=== PATIENT | female | born 1935 | race Caucasian/White ===

== ENCOUNTER 2018-11-25 16:47 | Inpatient (IN) | payer MEDICARE, OTHER ==
[2018-11-25] MEDS ORDERED: LR(*) 1000 ML BAG 1,000 ML ONE (17:03)
[2018-11-25] MEDS ORDERED: ONDANSETRON 4 MG/2 ML VIAL ONE (17:06)
[2018-11-25] MEDS ORDERED: ONDANSETRON 4 MG/2 ML VIAL IVP ONE ×3 (17:10→20:55)
--- NOTE | 2018-11-25 17:21 | ER Report ---
History and Physical Time Seen By MD: 17:00 (ESTEFANIA CASEY DO) HPI/ROS CHIEF COMPLAINT: vomitng and diarrhea HISTORY OF PRESENT ILLNESS: Pt states that she has had diarrhea for 3 years. It was determined that her symptoms may be related to her gallbladder. Pt was admitted to [facility] on october 31. Pts surgeon in [place], [place] took her to the OR November 02 and found her GB to be adhered to her pancreas, liver and small bowel so they decided to close up without removing her gb. They did place a drain in her gb which is to stay for 8 weeks. Her surgeon in [place] was going to refer her to [facility] after the 8 weeks for further treatment. PT states she was septic in that addmission and was in the hospital November 02-. Pt is not on abx. Pt statse that the last 4 days she has had vomiting and diarrhea. Pt has not been able to hold much down and is not urinating as frequently. Pt states this am she was able to keep a few mouth fulls of oatmeal but that was unusual. PT on Ed arrival is actively vomiting clear liquid. Pts does not believe she has a fever. REVIEW OF SYSTEMS: Constitutional: No fever, no chills. Eyes: No discharge. ENT: No sore throat. Cardiovascular: No chest pain, no palpitations. Respiratory: No cough, no shortness of breath. Gastrointestinal: + abdominal pain, + vomiting, + nausea, + diarrhea Genitourinary: No hematuria. Musculoskeletal: No back pain. Skin: No rashes. Neurological: No headache. (ESTEFANIA CASEY DO) Allergies: Coded Allergies: No Known Drug Allergies (Unverified , 11/25/18) Home Meds Reported Medications Timolol Maleate (Timolol Maleate) 0.5 % Drop.daily, QDAY 11/25/18 Latanoprost (LATANOPROST) 2.5 Ml Drops, 2.5 ML OP QDAY 11/25/18 Brinzolamide (AZOPT) 10 Ml Soln, 10 ML OD QDAY 11/25/18 Simvastatin (SIMVASTATIN) 20 Mg Tablet, 20 MG PO HS, TAB 11/25/18 Losartan Potassium (LOSARTAN POTASSIUM) 50 Mg Tablet, 50 MG PO BID 11/25/18 Levothyroxine Sodium (LEVOTHYROXINE SODIUM) 50 Mcg Tablet, 50 MCG PO QDAY, TAB 11/25/18 Past Medical/Surgical History Pmhx: diarrhea, sepsis, htn Pshx: hysterectomy, Eye surgery (ESTEFANIA CASEY DO) Reviewed Nurses Notes: Yes (ESTEFANIA CASEY DO) Hx Smoking: No Hx Alcohol Use: Yes (rarely) (ESTEFANIA CASEY DO) Constitutional Vital Sign - Last 24 Hours 11/25/18 11/25/18 11/25/18 11/25/18 16:59 17:00 17:10 17:15 Temp 97.6 Pulse 105 105 101 Resp 18 B/P (MAP) 95/74 78/59 (65) 130/89 (103) Pulse Ox 91 91 91 O2 Delivery Room Air 11/25/18 11/25/18 11/25/18 11/25/18 17:25 17:30 17:40 17:45 Pulse 100 97 B/P (MAP) 101/65 (77) 86/58 (67) 106/62 (77) Pulse Ox 90 92 11/25/18 11/25/18 11/25/18 11/25/18 17:50 18:00 18:10 18:15 Pulse 99 96 B/P (MAP) 103/58 (73) 88/57 (67) 124/75 (91) Pulse Ox 91 92 11/25/18 11/25/18 11/25/18 11/25/18 18:20 18:30 19:00 19:10 Pulse 95 B/P (MAP) 112/64 (80) 114/72 (86) 111/67 (82) 110/64 (79) Pulse Ox 90 100 11/25/18 11/25/18 11/25/18 11/25/18 19:20 19:30 19:40 19:50 Pulse 93 B/P (MAP) 127/72 (90) 128/69 (88) 130/73 (92) 109/60 (76) Pulse Ox 97 11/25/18 11/25/18 11/25/18 11/25/18 20:00 20:10 20:20 20:30 Pulse ??? B/P (MAP) 109/69 (82) 120/75 (90) 130/77 (94) 110/58 (75) Pulse Ox 98 98 7/11/25/18 11/25/18 11/25/18 20:40 20:45 20:50 21:00 Pulse 101 B/P (MAP) 94/51 (65) 135/76 (95) 111/66 (81) Pulse Ox 99 100 Intake and Output 11/25/18 11/25/18 11/26/18 15:02 23:02 07:02 Intake Total 1000 ml Balance 1000 ml (ELENA STOKES DO) Physical Exam General Appearance: The patient is alert, has no immediate need for airway protection, Actively vomiting Eyes: Pupils equal and round no pallor or injection, EOMI ENT: no pharyngeal erythema or exudates, Mucous membranes are moist, TM are nl b/l Respiratory: There are no retractions, lungs are clear to auscultation. Cardiovascular: Regular rate and rhythm. pulses are equal and symmetrical Gastrointestinal: Abdomen is soft with mild diffuse tenderness, no masses, bowel sounds normal, no guarding, no rigidity or rebound, Gb drain is actively draining fluid Neurological: Cranial nerves II-XII grossly intact, no sensory or motor loss Skin: Warm and dry, no rashes. Musculoskeletal: Neck is supple non tender, no vertebral tenderness Extremities are nontender, nonswollen and have full range of motion. DIFFERENTIAL DIAGNOSIS: After history and physical exam differential diagnosis was considered for sbo, psbo, colitis, viral gastroenteritis, dehydration, electrolyte abnl, sepsis (ESTEFANIA CASEY DO) Medical Decision Making Data Points Result Diagram: 11/25/18 1659 11/25/18 1659 Laboratory Hematology Test 11/25/18 16:59 White Blood Count 9.5 k/uL (4.5-11.0) Red Blood Count 4.14 M/uL (4.17-5.56) L Hemoglobin 12.1 g/dL (12.0-16.0) Hematocrit 35.9 % (34.0-47.0) Mean Corpuscular Volume 86.9 fL (80.0-96.0) Mean Corpuscular Hemoglobin 29.2 pg (26.0-33.0) Mean Corpuscular Hemoglobin Concent 33.5 g/dL (32.0-36.0) Red Cell Distribution Width 13.5 % (11.5-14.5) Platelet Count 291 K/uL (150-450) Mean Platelet Volume 8.9 fL (7.2-11.1) Neutrophils (%) (Auto) 75.8 % (39.4-72.5) H Lymphocytes (%) (Auto) 16.4 % (17.6-49.6) L Monocytes (%) (Auto) 6.2 % (4.1-12.4) Eosinophils (%) (Auto) 1.4 % (0.4-6.7) Basophils (%) (Auto) 0.2 % (0.3-1.4) L Nucleated RBC Relative Count (auto) 0.0 /100WBC Neutrophils # (Auto) 7.2 K/uL (2.0-7.4) Lymphocytes # (Auto) 1.6 K/uL (1.3-3.6) Monocytes # (Auto) 0.6 K/uL (0.3-1.0) Eosinophils # (Auto) 0.1 K/uL (0.0-0.5) Basophils # (Auto) 0.0 K/uL (0.0-0.1) Nucleated RBC Absolute Count (auto) 0.00 K/uL Chemistry Test 11/25/18 16:59 Sodium Level 136 mmol/L (137-145) Potassium Level 4.1 mmol/L (3.5-5.0) Chloride Level 94 mmol/L (98-107) Carbon Dioxide Level 22 mmol/L (22-31) Blood Urea Nitrogen 55 mg/dl (7-18) Creatinine 3.10 mg/dl (0.52-1.04) Glomerular Filtration Rate Calc 14.3 Random Glucose 109 mg/dl (75-110) Lactate 1.3 mmol/L (0.7-2.1) Calcium Level 10.1 mg/dl (8.4-10.2) Magnesium Level 2.2 mg/dl (1.7-2.2) Total Bilirubin 0.6 mg/dl (0.2-1.3) Aspartate Amino Transf (AST/SGOT) 21 U/L (0-35) Alanine Aminotransferase (ALT/SGPT) 32 U/L (0-56) Alkaline Phosphatase 86 U/L (0-126) Total Protein 8.1 g/dl (6.3-8.2) Albumin 4.6 g/dl (3.5-5.0) Lipase 519 U/L (23-300) Coagulation Test 7/17/19 16:59 Prothrombin Time 13.2 seconds (12.0-14.4) Prothromb Time International Ratio 1.00 Activated Partial Thromboplast Time 30 seconds (23-35) (ELENA STOKES DO) EKG/Imaging Imaging Results: CT scan of the abdomen and pelvis without contrast was obtained. The results of the study are CT abdomen and pelvis without contrast Indication: Abdominal pain. Recent gallbladder drain. Comparison: None Available. Technique: Axial CT images are obtained through the abdomen and pelvis. Reformatted coronal and sagittal images were reviewed. IV contrast was not administered. One of the following dose optimization techniques was utilized in the performance of this exam: automated exposure control; adjustment of the mA and/or kV according to the patient's size; or use of an iterative reconstruction technique. Specific details can be referenced in the facility's radiology CT exam operational policy. Findings: Lower lung hunter: Limited views lower lung field are unremarkable. Evaluation of the solid organs of the abdomen is limited without IV contrast. Liver: No focal parenchymal abnormality of the liver. Biliary: Gallbladder is contracted with a percutaneous catheter in place. Anterior to the gallbladder is a ill-defined area of fluid and air measuring approximately 2.7 x 2.9 cm. There are some surrounding inflammatory changes to the gallbladder fossa. No other focal abnormality. The biliary system is unremarkable. Pancreas: No focal abnormality. Spleen: Normal appearance. Adrenal glands: Unremarkable. Kidneys / retroperitoneum: No evidence of nephrolithiasis or hydronephrosis. No focal abnormality. Bowel / peritoneum / mesenteries: Colonic diverticula mainly in the descending sigmoid region. No pericolonic inflammation. The colon shows no other focal abnormality. The appendix is not definitely visualized. Small bowel shows no focal normality or obstruction but the stomach shows a moderate hiatal hernia without other focal abnormality. No free air, free fluid, other indication of fluid collection or inflammation. Lymph node assessment: No pathologic adenopathy identified. Pelvic structures: Uterus is not visualized may been surgically removed. The left adnexa/ovary does show a 5.1 x 2.6 cm cyst. The remaining pelvic structures visualized within normal limits. Vessels: Mild atherosclerotic calcific changes seen in the aorta. The infrarenal abdominal aorta does show aneurysmal dilatation measuring 3.7 x 4.5 cm for a length of approximately 5.1 cm. No periaortic inflammation or fluid. No other discrete aneurysm. Musculoskeletal / Body wall: No acute or aggressive osseous abnormality. Degenerative changes of spine. There is mild anterior spondylolisthesis of 5 mm of L4 over L5 due to degenerative changes. Degenerative change seen both hips. IMPRESSION: 1. Status post cholecystostomy tube. The gallbladder is contracted. Anterior to the gallbladder there is ill-defined area of fluid and air measuring proximally 2.9 cm. This may represent a ill-defined developing abscess. There is surrounding inflammation. 2. Diverticulosis without radiographic indication diverticulitis. 3. Infrarenal abdominal aortic aneurysm without acute abnormality. 4. Left ovarian/adnexal cyst measuring 5.2 cm. 5. Other chronic findings as above. The study was read by the radiologist. I viewed the images myself on the PACS system. (ELENA STOKES DO) ED Course/Re-evaluation Clinical Indication for ER IV: Hydration, IV Access ED Course Check labs. Pt will need CT but will hold ordering until I am able to see pts creatine. 11/25/2018 5:37:45 pm Pts creatine is elevated which I suspect is due to dehydration but I am also not sure if she had any kidney injury in recent sepsis admission in [place] ([facility]). Pt is willing to sign medical release to attempt to obtain records from her admission. Will order her current CT without contrast. 11/25/2018 5:51:36 pm Signed out to Dr. Stokes pending records, CT and suspected admission (ESTEFANIA CASEY DO) Clinical Indication for ER IV: Hydration, IV Access ED Course Care assumed at shift change from Dr. Matute with diagnostic CT pending. Patient with vomiting and diarrhea for 4 days. She was only able to keep down a few tablespoons of oatmeal. In the last couple of days. Patient appears grossly dehydrated. Her BUN and creatinine are grossly elevated. A CT scan was per formed which shows a drain in the gallbladder consistent with her history. There is a click and a fluid and air adjacent to the gallbladder, of unclear significance,? Abscess noted by radiology. Patient, however, has no fever, no white count, no elevation to the lactate and no abdominal pain to suggest an acute problem is in progress. Records have been requested from [facility] for but are unavailable at this time. 11/25/2018 8:29:[address] Franz hospitalist on-call, and Dr. Pal. General surgery 11/25/2018 8:32:23 pm notes some spontaneous twitching after Phenergan 12.5 g IV, Benadryl 12.5 mg will be administered IV Decision to Disposition Date: Nov 25, 2018 Decision to Disposition Time: 20:22 (ELENA STOKES DO) Depart Departure Latest Vital Signs Vital Signs Date Time Temp Pulse Resp B/P (MAP) Pulse Ox O2 Delivery O2 Flow Rate FiO2 11/25/18 21:00 111/66 (81) 100 11/25/18 20:45 101 11/25/18 16:59 97.6 18 Room Air (ELENA STOKES DO) Impression: Primary Impression: Vomiting and diarrhea Additional Impressions: Dehydration Cholecystitis Elevated lipase Condition: Improved Disposition: Admitted from ER Problem Qualifiers ESTEFANIA CASEY DO Nov 25, 2018 17:21 ELENA STOKES DO Nov 25, 2018 19:24
[2018-11-25 17:26] LABS: PLATELET COUNT, AUTOMATED 291 K/uL (150-450)
--- NOTE | 2018-11-25 19:07 | RADIOLOGY IMAGING REPORT ---
FACILITY: [facility] [place] PATIENT NAME: Maria E Stokes : 1935 MR: [id number] V: [id number] EXAM DATE: ORDERING PHYSICIAN: ESTEFANIA CASEY TECHNOLOGIST: Location: [facility] Patient: Maria E Stokes : 1935 Visit/Account:[id number] Date of Sevice: 11/25/2018 CT abdomen and pelvis without contrast Indication: Abdominal pain. Recent gallbladder drain. Comparison: None Available. Technique: Axial CT images are obtained through the abdomen and pelvis. Reformatted coronal and sagit thuy images were reviewed. IV contrast was not administered. One of the following dose optimization techniques was utilized in the performance of this exam: auto mated exposure control; adjustment of the mA and/or kV according to the patient's size; or use of an iterative reconstruction technique. Specific details can be referenced in the facility's radiology C T exam operational policy. Findings: Lower lung hunter: Limited views lower lung field are unremarkable. Evaluation of the solid organs of the abdomen is limited without IV contrast. Liver: No focal parenchymal abnormality of the liver. Biliary: Gallbladder is contracted with a percutaneous catheter in place. Anterior to the gallbladde r is a ill-defined area of fluid and air measuring approximately 2.7 x 2.9 cm. There are some surrou nding inflammatory changes to the gallbladder fossa. No other focal abnormality. The biliary system is unremarkable. Pancreas: No focal abnormality. Spleen: Normal appearance. Adrenal glands: Unremarkable. Kidneys / retroperitoneum: No evidence of nephrolithiasis or hydronephrosis. No focal abnormality. Bowel / peritoneum / mesenteries: Colonic diverticula mainly in the descending sigmoid region. No pe ricolonic inflammation. The colon shows no other focal abnormality. The appendix is not definitely visualized. Small bowel shows no focal normality or obstruction but the stomach shows a moderate hia thuy hernia without other focal abnormality. No free air, free fluid, other indication of fluid collection or inflammation. Lymph node assessment: No pathologic adenopathy identified. Pelvic structures: Uterus is not visualized may been surgically removed. The left adnexa/ovary do es show a 5.1 x 2.6 cm cyst. The remaining pelvic structures visualized within normal limits. Vessels: Mild atherosclerotic calcific changes seen in the aorta. The infrarenal abdominal aorta cohen s show aneurysmal dilatation measuring 3.7 x 4.5 cm for a length of approximately 5.1 cm. No periaor tic inflammation or fluid. No other discrete aneurysm. Musculoskeletal / Body wall: No acute or aggressive osseous abnormality. Degenerative changes of spi ne. There is mild anterior spondylolisthesis of 5 mm of L4 over L5 due to degenerative changes. Deg enerative change seen both hips. IMPRESSION: 1. Status post cholecystostomy tube. The gallbladder is contracted. Anterior to the gallbladder th ere is ill-defined area of fluid and air measuring proximally 2.9 cm. This may represent a ill-defin ed developing abscess. There is surrounding inflammation. 2. Diverticulosis without radiographic indication diverticulitis. 3. Infrarenal abdominal aortic aneurysm without acute abnormality. 4. Left ovarian/adnexal cyst measuring 5.2 cm. 5. Other chronic findings as above. I called report to Dr. Stokes at 11/25/2018 6:59 PM. Report Dictated By: Al Galvin at 11/25/2018 6:48 PM Report E-Signed By: Al Galvin at 11/25/2018 7:00 PM WSN:[email or web address]
[2018-11-25] MEDS ORDERED: PROMETHAZINE 25 MG/ML 1 ML AMP IVP ONE (19:50)
[2018-11-25] MEDS ORDERED: diphenhydrAMINE 50 MG/ML VIAL IVP ONE (20:35)
[2018-11-25 21:33] VITALS: BP 108/70
[2018-11-25] MEDS ORDERED: LEVO50TA86 PO (21:53)
[2018-11-25] MEDS ORDERED: SIMV-49 PO (21:53)
[2018-11-25] MEDS ORDERED: BRI10OD OD (21:53)
[2018-11-25] MEDS ORDERED: TIMO5DRO8 (21:53)
[2018-11-25] MEDS ORDERED: LATA2.5D7 OP (21:53)
[2018-11-25] MEDS ORDERED: LOSA50TA80 PO (21:53)
[2018-11-25] MEDS ORDERED: INFLUENZA VIRUS VAC 0.5ML SYR IM ONLY ONE (22:00)
[2018-11-25] MEDS ORDERED: ONDANSETRON 4 MG/2 ML VIAL IVP PRN (22:00)
--- NOTE | 2018-11-25 22:08 | History & Physical ---
History of Present Illness Chief Complaint Nausea and vomiting History of Present Illness This patient presented to the emergency room complaining of nausea and vomiting. She underwent an attempted cholecystectomy on November 01, but the procedure had to be aborted secondary to adhesions. She ended up with a drain and was told she would need to follow up at a [facility]. She developed nausea and vomiting on 11/21. She is now to the point where she can not tolerate anything by mouth. History Problems: (1) Hypothyroid (2) Essential hypertension Home Meds Reported Medications Timolol Maleate (Timolol Maleate) 0.5 % Drop.daily, QDAY 11/25/18 Latanoprost (LATANOPROST) 2.5 Ml Drops, 2.5 ML OP QDAY 11/25/18 Brinzolamide (AZOPT) 10 Ml Soln, 10 ML OD QDAY 11/25/18 Simvastatin (SIMVASTATIN) 20 Mg Tablet, 20 MG PO HS, TAB 11/25/18 Losartan Potassium (LOSARTAN POTASSIUM) 50 Mg Tablet, 50 MG PO BID 11/25/18 Levothyroxine Sodium (LEVOTHYROXINE SODIUM) 50 Mcg Tablet, 50 MCG PO QDAY, TAB 11/25/18 Allergies: Coded Allergies: No Known Drug Allergies (Unverified , 11/25/18) Hx Smoking: No Hx Alcohol Use: Yes (rarely) Review of Systems All Systems Reviewed/Normal: Yes, Except as Noted Gastrointestinal: Nausea, Vomiting Exam Vital Signs Vital Signs Date Time Temp Pulse Resp B/P (MAP) Pulse Ox O2 Delivery O2 Flow Rate FiO2 11/25/18 21:33 98.1 97 18 108/70 (83) 100 Nasal Cannula 2.0 Neuro: No Gross deficits Eyes: PERRLA Cardiovascular: Regular Rate and Rhythm Respiratory: Clear to Auscultation GI: Abd Soft and Non-Tender Extremities: No Edema Integumentary: No Cyanosis Medical Decision Making Data Points Result Diagram: 11/25/18165811/25/181658 Assessment and Plan Problems: (1) ARF (acute renal failure) Assessment & Plan: She has had persistent nausea and vomiting since 11/21 and was found to have an elevated BUN/Cr at admission. She has been started on IV fluids and repeat labs are ordered for the morning. (2) Cholecystitis Status: Acute Assessment & Plan: She underwent an attempt at cholecystectomy several weeks ago, but the surgery had to be aborted secondary to adhesions. Records have been requested from that hospital. (3) Essential hypertension Assessment & Plan: She is on chronic treatment with losartan, which is currently on hold. (4) Hypothyroid Assessment & Plan: She is on chronic treatment with Synthroid. Venous Thromboembolism Antithrombotics Is Pt On Any Antithrombotics?: No Exam Sepsis Risk: No Definite Risk NEETA MCGILL DO Nov 25, 2018 22:08
[2018-11-25] MEDS: NS(*) 0.9% 1000 ML BAG 1,000 ML IV PRN (22:47)
[2018-11-26 05:53] LABS: PLATELET COUNT, AUTOMATED 184 K/uL (150-450)
[2018-11-26] MEDS: NS(*) 0.9% 1000 ML BAG 1,000 ML IV PRN ×2 (06:07→15:46)
[2018-11-26 06:47] VITALS: BP 95/55
[2018-11-26 11:13] VITALS: BP 112/60
--- NOTE | 2018-11-26 11:27 | Hospitalist Progress Note ---
Subjective Progress Notes Subjective RED overnight, she has less nausea, not using antiemetics. Will advance diet and reevaluate. Patient Complains of: Gastrointestinal: No Nausea, No Vomiting, No Bowel Movement Physical Exam Vital Signs Date Time Temp Pulse Resp B/P (MAP) Pulse Ox O2 Delivery O2 Flow Rate FiO2 11/26/18 11:13 97.5 80 20 112/60 (77) 90 Nasal Cannula 1.0 Intake and Output 11/26/18 07:02 Intake Total 1000 ml Output Total 175 ml Balance 825 ml Intake IV Total 1000 ml Output Drainage Total 175 ml General Appearance: Alert, Awake, No Acute Distress, Afebrile Neuro: No Gross deficits Cardiovascular: Normal Rhythm & Peripheral Pulses Respiratory: No Respiratory Distress GI: Soft and Non-Tender Extremities: Soft and Non Tender, Warm, Pulses, Perfused Result Diagram: 11/26/1851311/26/18513 Assessment and Plan Problems: (1) ARF (acute renal failure) Assessment & Plan: She has had persistent nausea and vomiting since 11/21 and was found to have an elevated BUN/Cr at admission. Records requested as she did have ARF when admitted to hospital October-November in [place]. Continue IV fluids, advance diet. (2) Cholecystitis Status: Acute Assessment & Plan: She underwent an attempt at cholecystectomy several weeks ago, but the surgery had to be aborted secondary to adhesions. She does have an external cholecystostomy tube draining bilious fluid.Records have been requested from that hospital. (3) Essential hypertension Assessment & Plan: She is on chronic treatment with losartan, which is current ly on hold. (4) Hypothyroid Assessment & Plan: She is on chronic treatment with Synthroid. Exam Sepsis Risk: No Definite Risk ENGLISH RAPHAEL FERREIRA DO Nov 26, 2018 11:27
--- NOTE | 2018-11-26 12:24 | Medical Nutrition Therapy ---
Nutrition Anthropometrics Weight (Pounds): 140 Weight (Calculated Kilograms): 63.503 Pierce Nutrition Score: Probably Inadequate Pierce Nutrition Risk Score: 19 Dietary Referral Nutrition Risk Factors: Nutrition Risk Comment: nausea and vomiting Physical Findings Physical Appearance: Skin Appearance Skin Appearance: Edema Edema Location Modifier: Edema Location: Type of Edema: Degree of Edema: Gastrointestinal Symptoms GI Symtoms: Nausea, Vomiting Tube Present: Bowel Sounds: Recent Bowel Pattern: Stool Characteristics: Nutrition/Food History Poor Nutritional Diagnosis Nutritional Risk Acuity 1: Malnutrition Nutritional Risk Acuity 2: Baez < 25% BSA, Pr Appetite > 3d Nutritional Risk Acuity 3: OR & > 80 yrs Past Medical History: Hypothyroid, HTN Nutritional Acuity: 1-High Nutrition Diagnosis: Inadequate Food Intake Nutrition Etiology: Loss of Appetite Nutrition Problem/Etiology/Sym: appetite poor since 10/31, decreased intake <75% of estimated needs for 1 month, 25% reduction in hand stress test technician strength Energy Requirement: 1909 (30 kcal/kg) Protein Requirement: 76 (1g/kg) Fluid Requirement: 1090 (1mL/kcal) Nutrition Intervention: Incr diet as tolerated Diet Comment To [facility]: OFFER MIGHTY SHAKE WHEN DIET ADVANCES Nutrition Monitoring & Eval Nutrition Goals: Eat 75-100% Meal Nutrition Follow-Up: Poor Intake Nutrition Monitoring: Intake, appetite RD Patient Assessment Time: [address] Assessment Type: RD Assessment Follow Up Date: Nov 29, 2018 Nutritional Comment: 11/26/18-Pt hx significant for recent attempted cholecystectomy. PMH includes HTN, hypothyroid.Spoke with pt and family this am. Ever since atempted cholecystectomy on 10/31 has had a poor appetite. Past four days has had N/V/D. Pt reports weakness. Performed malnutrition physical assessment and found 25% reduction in hand stress test technician strength compared to normative standards. Pt also had some evidence of muscle loss, at the temporalis muscle, deltoid, and quadriceps. Pt qualifies for moderate protein calorie malnutriton. Spoke with pt about trying an oral nutrition supplement to help meets needs. Will monitor diet advancement, tolerance, and appetite.ASIM TAI Nov 26, 2018 11:15
[2018-11-26 14:36] VITALS: BP 98/58
[2018-11-26 19:29] VITALS: BP 101/64
[2018-11-27] MEDS: NS(*) 0.9% 1000 ML BAG 1,000 ML IV PRN (00:27)
[2018-11-27 04:30] VITALS: BP 116/67
[2018-11-27 07:02] VITALS: BP 108/82
[2018-11-27] MEDS ORDERED: ONDA4TAB9 PO (13:33)
--- NOTE | 2018-11-27 13:50 | Hospitalist Depart ---
Discharge Summary Reason for Hosp/Final Diag: (1) Vomiting and diarrhea Status: Resolved Hospital Course & Plan: She had persistent nausea and vomiting since 11/21. She did have an elevated lipase, but the CT didn't have evidence of inflammation fo the pancreas. The lipase elevation was likely secondary to the vomiting. She has a benign abdominal exam. The etiology of the nausea is unclear. It has resolved since admission. (2) ARF (acute renal failure) Hospital Course & Plan: The creatinine has improved with IV hydration. She is tolerating oral intake. BMP in 1-2 weeks. (3) Cholecystitis Status: Acute Hospital Course & Plan: She underwent an attempt at cholecystectomy several weeks ago, but the surgery had to be aborted secondary to adhesions. She does have an external cholecystostomy tube draining bilious fluid. It continues to drain well. She has follow up at [facility] for definitive care. LFT's have been normal throughout this visit and she has a benign abdominal exam. (4) Essential hypertension Hospital Course & Plan: She is on chronic treatment with losartan, which is currently on hold. It is to restart in a couple of days. (5) Hypothyroid Hospital Course & Plan: She is on chronic treatment with Synthroid. Departure Weight (Pounds): 140 Result Diagram: 11/26/1851311/27/1842 Item Value Date Time Platelet Count 291 K/uL 11/25/181658 Platelet Count 184 K/uL 11/26/18 0514 Neutrophils (%) (Auto) 75.8 % H 11/25/18 165 Neutrophils (%) (Auto) 64.5 % 11/26/18 05 Lymphocytes (%) (Auto) 16.4 % L 11/25/18 165 Lymphocytes (%) (Auto) 21.8 % 11/26/18 0514 Hemoglobin 12.1 g/dL 11/25/18 165 Hemoglobin 9.2 g/dL L 11/26/18513 White Blood Count 9.5 k/uL 11/25/181658 White Blood Count 6.4 k/uL 11/26/18 0514 Prothromb Time International Ratio 1.00 11/25/181658 Creatinine 3.10 mg/dl H 11/25/18 1659 Creatinine 3.00 mg/dl H 11/26/18 0514 Creatinine 1.40 mg/dl H 11/27/18 0542 Aspartate Amino Transf (AST/SGOT) 16 U/L 11/26/18 0514 Alanine Aminotransferase (ALT/SGPT) 27 U/L 11/26/18 0514 Alkaline Phosphatase 58 U/L 11/26/18 0514 Total Protein 5.9 g/dl L 11/26/18 0514 Albumin 3.2 g/dl L 11/26/18 0514 Lipase 343 U/L H 11/26/18 0514 Lipase 519 U/L H 11/25/18 1659 Total Bilirubin 0.6 mg/dl 11/25/18 1659 Total Bilirubin 0.4 mg/dl 11/26/18 0514 Aspartate Amino Transf (AST/SGOT) 21 U/L 11/25/18 1659 Alanine Aminotransferase (ALT/SGPT) 32 U/L 11/25/18 1659 Alkaline Phosphatase 86 U/L 11/25/18 1659 Total Protein 8.1 g/dl 11/25/18 1659 Random Glucose 109 mg/dl 11/25/18 1659 Random Glucose 85 mg/dl 11/26/18 0514 Random Glucose 77 mg/dl 11/27/18 0542 Sodium Level 136 mmol/L L 11/25/18 1659 Potassium Level 4.1 mmol/L 11/25/18 1659 Chloride Level 94 mmol/L L 11/25/18 1659 Carbon Dioxide Level 22 mmol/L 11/25/18 1659 Blood Urea Nitrogen 55 mg/dl H 11/25/18 1659 Blood Urea Nitrogen 55 mg/dl H 11/26/18 0514 Carbon Dioxide Level 25 mmol/L 11/26/18 0514 Chloride Level 98 mmol/L 11/26/18 0514 Potassium Level 4.0 mmol/L 11/26/18 0514 Sodium Level 135 mmol/L L 11/26/18 0514 Sodium Level 136 mmol/L L 11/27/18 0542 Chloride Level 105 mmol/L 11/27/18 0542 Potassium Level 3.9 mmol/L 11/27/18 0542 Carbon Dioxide Level 21 mmol/L L 11/27/18 0542 Blood Urea Nitrogen 35 mg/dl H 11/27/18 0542 No growth from blood cultures x2 from 11/25/18 Imaging 11/25/18 Abd/Pelvis CT - 1. Status post cholecystostomy tube. The gallbladder is contracted. Anterior to the gallbladder there is ill-defined area of fluid and air measuring proximally 2.9 cm. This may represent a ill-defined developing abscess. There is surrounding inflammation. 2. Diverticulosis without radiographic indication diverticulitis. 3. Infrarenal abdominal aortic aneurysm without acute abnormality. 4. Left ovarian/adnexal cyst measuring 5.2 cm. 5. Other chronic findings as above. Condition: Improved Discharge: Home Discharge Instructions Home Meds Active Scripts Ondansetron 4 Mg Odt (ONDANSETRON 4 MG ODT) 4 Mg Tab.rapdis, 4 MG PO Q8H PRN for nausea, #10 TAB Prov:CONNOR TERRELL MD 11/27/18 Reported Medications Timolol Maleate (Timolol Maleate) 0.5 % Drop.daily, QDAY 11/25/18 Latanoprost (LATANOPROST) 2.5 Ml Drops, 2.5 ML OP QDAY 11/25/18 Brinzolamide (AZOPT) 10 Ml Soln, 10 ML OD QDAY 11/25/18 Simvastatin (SIMVASTATIN) 20 Mg Tablet, 20 MG PO HS, TAB 11/25/18 Losartan Potassium (LOSARTAN POTASSIUM) 50 Mg Tablet, 50 MG PO BID 11/25/18 Levothyroxine Sodium (LEVOTHYROXINE SODIUM) 50 Mcg Tablet, 50 MCG PO QDAY, TAB 11/25/18 Diet: Low Fat Activity: As Tolerated Special Instructions: Go to the ER for fevers, chills, vomiting, or abdominal pain. Follow up with your surgeon and PCP as previously. BMP in 1-2 weeks to follow up renal function. Restartin losartan on 11/30. Venous Thromboembolism Antithrombotics Is Pt On Any Antithrombotics?: No CONNOR TERRELL MD Nov 27, 2018 13:50
== END 2018-11-27 14:50 | disposition home or self-care (01) | DRG 684 ==
LOC: ER 17:00 → MED 21:03
PROVIDERS: ADMIT Family Medicine; ATTEND Family Medicine
DX: N17.9 Acute kidney failure, unspecified (principal); K81.1 Chronic cholecystitis; K82.8 Other specified diseases of gallbladder; I10 Essential (primary) hypertension; E86.0 Dehydration; E03.9 Hypothyroidism, unspecified
CPT/HCPCS: 36415; 74176; 82040; 82247; 82310; 82374; 82435; 82565; 82947; 83605; 83690; 83735; 84075; 84132; 84155; 84295; 84450; 84460; 84520; 85025; 85610; 85730; 87040; 96361; 96374; 96375; 96376; 99284; J1200; J2405; J2550; J7030; J7120